=== PATIENT | male | born 1965 | race Caucasian/White ===

== ENCOUNTER 2024-06-16 18:27 | Observation (INO) | payer OTHER, SELFPAY ==
[2024-06-16] VITALS (11 sets, daily range): BP systolic 115–147; BP diastolic 64–83; PULSE 80–89; BMI 25.2; BMI 24.8
--- NOTE | 2024-06-16 10:58 | ED.GENMED ---
History of Present Illness
<DO Alo Meadows Filed: 06/18/24 21:30>
General
Chief Complaint: Fainting Sensation
Source: patient
Time Seen by Provider: 06/16/24 10:34
History of Present Illness
History of Present Illness:
59-year-old male presents to the emergency room because he was feeling lightheaded. Patient awoke this morning feeling quite dizzy and lightheaded. He endorses having a alcoholic drink last night as well as a gummy that contains THC. He was
trying to go to down the steps this morning when he fell at the top of the steps. He did not fall down the steps. He denies any injuries. Patient states he was feeling okay yesterday. He takes lisinopril for hypertension and had an injection for
migraines.
Past History
<DO Alo Meadows Filed: 06/18/24 21:30>
Past History
ED Past Medical History: HTN and Other (history of migraines)
ED Past Surgical History: Other (wisdom teeth extraction)
Phy Exam
<DO Alo Meadows Filed: 06/18/24 21:30>
Physical Exam
Physical Exam:
General: Awake, Alert, Oriented X3. No acute distress but appears somewhat dazed, pale
Vitals: Tachycardic
Head: Atraumatic
Eyes: Pupils equal, EOMI
Throat: Airway intact, no exudates, dry mucosa
Neck: Trachea midline
Lungs: Clear and equal b/l
Heart: Regular rate, no murmurs
Abd: Soft, Nontender, No pulsatile mass
Neuro: Nonfocal
Skin: Warm, dry, no rash
Extremities: pulses equal b/l, no edema
Course
<DO Alo Meadows Filed: 06/18/24 21:30>
Orders/Labs/Results
Orders:
Orders
06/16/24 10:22
Electrocardiogram (*1) Urgent
Reason for Study: Tachycardia
EKG- Treatment ONCE
06/16/24 10:58
0.9% Sodium Chloride 1000 ml [Nss] 2,000 ml IV BOLUS
06/16/24 11:01
Basic Metabolic Panel Urgent
Complete Blood Count/With Diff Urgent
Free T4 Urgent
TSH Reflex To Free T4 Urgent
06/16/24 13:47
CT Head W/o Iv Contrast Urgent
Comment:
Reason For Exam: dizziness
06/16/24 Dinner
Regular
At Your Request: Full Participation
Does patient need a safe tray?: No
06/16/24 15:53
Acetaminophen [Tylenol] 650 mg PO NOW STA
06/16/24 18:17
Admit/Transfer Patient As Directed
Co-Sign Provider:
Level of Care: Observation services
Assign to:: Telemetry
Physician / Group: Delfin Galdamez
Transfer to: Telemetry
Diagnosis: Lightheadedness
Reason for Telemetry: Arrhythmia
Date to Stop Telemetry: 06/19/24
Time to Stop Telemetry: 11:00
Expected length of stay greater than two midnights?: No
Code Status As Directed
Resuscitation Status: Full Code
PRN Pain Medication Management As Directed
May give lesser potent ordered pain med per pt: Yes
preference::
Protocol:: Medication orders for pain may be administered in a
manner that supports deferring to patient preference
when the pt is:
- Requesting an ordered lesser potent pain medication.
Least to most potent pain medications are defined
as: acetaminophen < NSAID < tramadol < opioids
(morphine, oxycodone, hydromorphone).
- Requesting a lesser dose of the same medication IF
ORDERED.
- Requesting a less intrusive route of administration
if both routes are prescribed by the provider (PO <
IV).
06/16/24 19:34
Acetaminophen [Tylenol] 650 mg PO Q4HPRN PRN
Bisacodyl [Dulcolax] 10 mg RECTAL [id number] PRN
Docusate W/Senna [Senokot-S] 1 tablet PO BIDPRN PRN
Polyethylene Glycol Powder [Miralax] 17 grams PO DAILYPRN PRN
06/16/24 19:34
Activity As Directed
Activity Level: Out of Bed-Early Mobility
Intake/ Output As Directed
Frequency: Per unit guidelines
Neurological Checks As Directed
Frequency: q4h
Pneumatic Compression Sleeves As Directed
Type: Knee high
Vital Signs As Directed
Frequency: Per unit guidelines
DX Deep Vein Thrombosis Video Routine
06/16/24 22:45
Urinalysis Urgent
Date Specimen was Collected: 06/16/24
Time Specimen was Collected: 22:36
06/17/24 07:52
Complete Blood Count/No Diff IN AM
06/17/24 13:28
MR Brain W/o & With Contrast Routine
Reason For Exam: Focal calcified lesion on CT
Recent pill cam endoscopy?: No
06/17/24 18:00
Lisinopril [Zestril] 5 mg PO QPM
Sertraline HCl [Zoloft] 100 mg PO QPM
06/19/24 11:00
DC Protocol for Telemetry ONCE
Abnormal Lab Results
06/16/24
11:01
WBC 13.1 H 10^3/uL
(4.8-10.8)
RBC 4.33 L 10^6/uL
(4.70-6.10)
MCH 33.5 H pg
(27.0-31.0)
Abs Immat Gran (auto) 0.1 H 10^3/uL
(0-0.05)
Absolute Neuts (auto) 11.5 H 10^3/uL
(1.4-6.5)
Absolute Lymphs (auto) 1.0 L 10^3/uL
(1.2-3.4)
Neutrophils % 88.0 H %
(42.2-75.2)
Lymphocytes % 7.3 L %
(20.5-51.1)
BUN 23 H mg/dl
(9-20)
Glucose 209 H mg/dl
(70-99)
TSH (Reflex) 0.20 L uIU/ml
(0.47-4.68)
06/16/24 11:01
06/16/24 11:01
Vital Signs
Initial and Last Documented VS:
Initial Vital Signs
Temp Pulse Resp BP Pulse Ox
97.9 F 140 14 119/79 97
06/16/24 10:18 06/16/24 10:18 06/16/24 10:18 06/16/24 10:18 06/16/24 10:18
Last Documented Vital Signs
Temp Pulse Resp BP Pulse Ox
98.3 F 60 16 126/71 94
06/18/24 16:00 06/18/24 17:10 06/18/24 16:00 06/18/24 17:10 06/18/24 17:07
<Yulissa Clifford MD - Last Filed: 06/16/24 23:02>
Orders/Labs/Results
Orders:
Orders
06/16/24 10:22
Electrocardiogram (*1) Urgent
Reason for Study: Tachycardia
EKG- Treatment ONCE
06/16/24 10:58
0.9% Sodium Chloride 1000 ml [Nss] 2,000 ml IV BOLUS
06/16/24 11:01
Basic Metabolic Panel Urgent
Complete Blood Count/With Diff Urgent
Free T4 Urgent
TSH Reflex To Free T4 Urgent
06/16/24 13:47
CT Head W/o Iv Contrast Urgent
Comment:
Reason For Exam: dizziness
06/16/24 Dinner
Regular
At Your Request: Full Participation
Does patient need a safe tray?: No
06/16/24 15:53
Acetaminophen [Tylenol] 650 mg PO NOW STA
06/16/24 18:17
Admit/Transfer Patient As Directed
Co-Sign Provider:
Level of Care: Observation services
Assign to:: Telemetry
Physician / Group: Delfin Galdamez
Transfer to: Telemetry
Diagnosis: Lightheadedness
Reason for Telemetry: Arrhythmia
Date to Stop Telemetry: 06/19/24
Time to Stop Telemetry: 11:00
Expected length of stay greater than two midnights?: No
Code Status As Directed
Resuscitation Status: Full Code
PRN Pain Medication Management As Directed
May give lesser potent ordered pain med per pt: Yes
preference::
Protocol:: Medication orders for pain may be administered in a
manner that supports deferring to patient preference
when the pt is:
- Requesting an ordered lesser potent pain medication.
Least to most potent pain medications are defined
as: acetaminophen < NSAID < tramadol < opioids
(morphine, oxycodone, hydromorphone).
- Requesting a lesser dose of the same medication IF
ORDERED.
- Requesting a less intrusive route of administration
if both routes are prescribed by the provider (PO <
IV).
06/16/24 19:34
Acetaminophen [Tylenol] 650 mg PO Q4HPRN PRN
Bisacodyl [Dulcolax] 10 mg RECTAL [id number] PRN
Docusate W/Senna [Senokot-S] 1 tablet PO BIDPRN PRN
Polyethylene Glycol Powder [Miralax] 17 grams PO DAILYPRN PRN
06/16/24 19:34
Activity As Directed
Activity Level: Out of Bed-Early Mobility
Intake/ Output As Directed
Frequency: Per unit guidelines
Neurological Checks As Directed
Frequency: q4h
Pneumatic Compression Sleeves As Directed
Type: Knee high
Vital Signs As Directed
Frequency: Per unit guidelines
DX Deep Vein Thrombosis Video Routine
06/16/24 22:45
Urinalysis Urgent
Date Specimen was Collected: 06/16/24
Time Specimen was Collected: 22:36
06/17/24 07:52
Complete Blood Count/No Diff IN AM
06/17/24 13:28
MR Brain W/o & With Contrast Routine
Reason For Exam: Focal calcified lesion on CT
Recent pill cam endoscopy?: No
06/17/24 18:00
Lisinopril [Zestril] 5 mg PO QPM
Sertraline HCl [Zoloft] 100 mg PO QPM
06/19/24 11:00
DC Protocol for Telemetry ONCE
Abnormal Lab Results
06/16/24
11:01
WBC 13.1 H 10^3/uL
(4.8-10.8)
RBC 4.33 L 10^6/uL
(4.70-6.10)
MCH 33.5 H pg
(27.0-31.0)
Abs Immat Gran (auto) 0.1 H 10^3/uL
(0-0.05)
Absolute Neuts (auto) 11.5 H 10^3/uL
(1.4-6.5)
Absolute Lymphs (auto) 1.0 L 10^3/uL
(1.2-3.4)
Neutrophils % 88.0 H %
(42.2-75.2)
Lymphocytes % 7.3 L %
(20.5-51.1)
BUN 23 H mg/dl
(9-20)
Glucose 209 H mg/dl
(70-99)
TSH (Reflex) 0.20 L uIU/ml
(0.47-4.68)
06/16/24 11:01
06/16/24 11:01
Vital Signs
Initial and Last Documented VS:
Initial Vital Signs
Temp Pulse Resp BP Pulse Ox
97.9 F 140 14 119/79 97
06/16/24 10:18 06/16/24 10:18 06/16/24 10:18 06/16/24 10:18 06/16/24 10:18
Last Documented Vital Signs
Temp Pulse Resp BP Pulse Ox
98.3 F 60 16 126/71 94
06/18/24 16:00 06/18/24 17:10 06/18/24 16:00 06/18/24 17:10 06/18/24 17:07
<Mario Saldivar, DO - Last Filed: 06/18/24 21:30>
MDM/Problems Addressed
Differential Diagnosis Includes:
Dehydration, electrolyte abnormalities, secondary effects of drug ingestion
MDM/Problems Addressed:
Patient presents with lightheadedness dizziness. Symptoms seem correlated with the use of THC last night. Physical exam shows that he is sleepy and appears to be uncomfortable but in no distress. His neurologic exam is nonfocal. Patient
hydrated. He feels somewhat better but not back to baseline. Patient signed out to Dr. Clifford pending CAT scan and further observation.
<Mario Saldivar DO - Last Filed: 06/18/24 21:30>
*Pulse Oximetry
Patient hypoxic: no
*EKG
Interpreted by ED Provider?: Yes
Interpretation: abnormal
Heart Rate: 108
Rate: tachycardiac
Rhythm: sinus tachycardia
[place]: normal axis
Interval: normal interval
QRS Pattern: normal QRS
Ischemia: non-specific ST changes
*[employer] Interpretation
Rate: tachycardiac
Interpretation: abnormal
Heart Rate: 108
Rhythm: sinus tachycardia
*Critical Care Note
Total Time (30-74mins, 75-104mins- exclusive of procedures): Not Applicable
<Yulissa Clifford MD - Last Filed: 06/16/24 23:02>
Update Note
Update Note:
CT scan as below. Trialed ambulation again however patient remains ataxic. After shared decision making we will admit for MRI
Focal well-defined calcification within the anterior and inferior left frontal lobe with no evidence for associated mass effect or white matter edema. This most likely represents a benign dystrophic calcification, although of uncertain etiology.
As warranted, consider further evaluation with MRI of the brain without and with contrast. Also, consider a follow-up CT of the head in 6-9 months to assess for stability.
ED Attending Note
<Mario Saldivar DO - Last Filed: 06/18/24 21:30>
-
Portions of this chart may have been created with voice recognition software.� Occasional wrong word or��sound alike� substitutions may have occurred due to the inherent limitations of voice recognition software.
Discharge Plan
Departure
Patient Disposition: Admit
Presentation/result/management discussed w/ accepting MD/DO: Hospitalist
Discharge Problem:
Dizziness
Interventions
Interventions:
*Risk Screen - Suicide Last Done: 06/16/24 19:56
*General Assessment Last Done: 06/16/24 10:56
*Neglect/Abuse Screening Last Done: 06/16/24 10:56
ED- Fall Risk Assessment Last Done: 06/16/24 10:56
*ED COVID-19 Vaccine History Last Done: 06/16/24 12:00
*Nursing Disposition Last Done: 06/16/24 19:30
ED- Cardiac Assessment Last Done: 06/16/24 10:56
ED- Neurological Assessment Last Done: 06/16/24 10:56
Discharge Date and Time
Discharge Date/Time: 06/16/24 19:30
[2024-06-16] MEDS: NSS 2000 IV (11:00)
[2024-06-16 11:13] LABS: % Basophils 0.2 % (0-2); % Immature Granulocytes 0.4 % (0-0.5); % Lymphocytes 7.3 % (20.5-51.1); % Monocytes 4.1 % (1.7-9.3); Absolute Immature Granulocytes 0.1 10^3/uL (0-0.05); Absolute Monocytes 0.5 10^3/uL (0.1-0.6); Absolute Neutrophils 11.5 10^3/uL (1.4-6.5); Hematocrit 40.1 % (39.0-52.0); Hemoglobin 14.5 g/dL (13.0-18.0); Mean Corp Hgb Conc. 36.2 g/dL (33.0-37.0); Mean Corpuscular Hgb 33.5 pg (27.0-31.0); Mean Corpuscular Volume 92.6 fL (80.0-94.0); Mean Platelet Volume 9.2 fL (7.4-10.4); Nucleated Red Blood Cells % 0 % (-); Platelet Count 295 10^3/uL (130-400); Red Blood Cell Count 4.33 10^6/uL (4.70-6.10); Red Cell Dist. Width 11.6 % (11.5-14.5); White Blood Cell Count 13.1 10^3/uL (4.8-10.8)
[2024-06-16 11:26] LABS: Blood Urea Nitrogen 23 mg/dl (9-20); Calcium 9.8 mg/dl (8.4-10.2); Carbon Dioxide 23 mmol/L (22-30); Chloride 101 mmol/L (98-107); Estimated Creatinine Clearance 75 ml/min; Glucose 209 mg/dl (70-99); Potassium 4.2 mmol/L (3.5-5.1); Sodium 140 mmol/L (135-145); eGFR > 60.00
[2024-06-16 12:26] LABS: Free T4 1.03 ng/dl (0.78-2.19)
[2024-06-16] MEDS: TYLENOL 650 MG PO (15:59)
--- NOTE | 2024-06-16 18:08 | HPS.HSE ---
Family Physician
-
Family Physician: Heron Ellis
Chief Complaint
-
Lightheadedness
History of Present Illness
Patient is a 59-year-old male with hypertension, migraines that presented to the ED today for the complaint of presyncope. He complained of lightheadedness upon awakening this morning. Was trying to go down the stairs when he had a fall, did not
fall down the stairs however. Denied any injuries at the time, no head strike. States that he was feeling well prior to this morning. Last evening he did have an alcoholic beverage and THC edible. He denies any chest pain, shortness of breath,
fevers or chills. Denies palpitations or vertiginous symptoms.
Upon arrival was AFVSS and on room air. Lab studies in the ED showed TSH 0.2 with normal free T4, white count 13.1 with neutrophilic predominance and relative lymphopenia but otherwise unremarkable. CT head without contrast showed a focal
well-defined calcification in the anterior and inferior left frontal lobe without any mass effect or edematous findings, consistent with benign dystrophic calcification.
Upon speaking with the patient he states that he has had other episodes of similar symptoms in the past though not as severe as today. He had an episode while in the supermarket a few months ago where he felt like he was in a pass out though did
not at the time. Had other previous occurrences without any workup. He denies any chest pain, dyspnea, palpitations before his episode today.
Medical History
Past Medical History
Past Medical History: Reports HTN
Past Surgical History: Reports None
Social History
Tobacco: Non-smoker
Alcohol: Occasional
Drug: Marijuana
Family History
Family History: Not pertinent
Allergies / Home Medications
Allergies reflects when Allergies were last updated in [facility].
Home Medications with original date entered in [facility]
Allergy/Medication List:
Allergies
Allergy/AdvReac Type Severity Reaction Status Date / Time
No Known Allergies Allergy Verified 06/16/24 10:18
Home Medications
lisinopril 5 mg tablet 5 mg PO QPM 12/10/10
sertraline 100 mg tablet 100 mg PO QPM 06/16/24
Review of Systems
-
A 12 point ROS was completed and negative except as noted: Yes
Constitutional: Reports No Symptoms
EENT: Reports No Symptoms
Respiratory: Reports No Symptoms
Cardiac: Reports No Symptoms
Abdomen/GI: Reports No Symptoms
: Reports No Symptoms
Musculoskeletal: Reports No Symptoms
Skin: Reports No Symptoms
Neurological: Reports No Symptoms
Endocrine: Reports No Symptoms
Hematologic/Lymphatic: Reports No Symptoms
Psych: Reports No Symptoms
Physical Exam
Vital Signs
Vital Signs
Temp Pulse Resp BP Pulse Ox
97.9 F 105 18 122/68 96
06/16/24 10:18 06/16/24 17:33 06/16/24 17:33 06/16/24 17:00 06/16/24 17:33
Physical Exam
General: Well Nourished, No Apparent Distress, Comfortable and Conversant
HEENT: NormoCephalic, Anicteric, Moist mucous membranes and Atraumatic
Respiratory: Clear and Non Labored Respirations; No Wheezes, Rales or Rhonchi
Cardiac: S1/S2 and Regular Rhythm; No Murmur, Rub, Gallop, Peripheral Edema or JVD
GI: Soft, Non Tender, Non Distended, Normal Bowel Sounds and No Hepatosplenomegaly
Musculoskeletal: No Clubbing, No Cyanosis, No Edema and Other (No gross deformities)
Skin: Warm and Dry; No Rash, Jaundice or Lesions
Neuro: AO x 3, Nonfocal/grossly intact, Cranial Nerves Intact and Other (No nystagmus)
Laboratory Results
-
06/16/24 11:01
06/16/24 11:01
Data Reviewed
-
CT Scan: Report Reviewed by me and Discussed with Patient
Lab Data: Labs Reviewed by me and Discussed with Patient
Impression/Plan
-
#Lightheadedness
#Gait disturbance
-Differentials includes drug-induced, viral infx, vestibular migraine; cannot rule out cardiac cause; neurologic cause less likely
-Was lightheaded upon awakening this morning after consuming alcohol and THC last night, unsure of the dosage he took
-No biochemical causes on labs in the ED, CT showed benign-appearing calcification not anatomically correlated
-Was slightly tachycardic in the ED though has improved, heart rate in the high 90s and sinus on my eval
-No focal deficits on exam, no nystagmus
Plan
-Order MRI brain without contrast
-Order orthostatic vital signs and routine chest x-ray
-Monitor on telemetry while here
-Follow-up COVID testing
-Order TTE for here Tuesday, consider outpatient at [facility] before
-Consider cardiology consult
#Leukocytosis
-Neutrophilic predominance with lymphopenia on differential, no fevers or other infectious symptoms
-Suspect he could have an underlying viral infection such as COVID that is contributing to his admission
-Will order COVID now, monitor for fevers or chills
Plan
-Low threshold for blood cultures if febrile, in context of undiagnosed murmur
-Follow-up COVID testing consider Paxlovid
-Trend CBC
#Cardiac murmur
-States he has never been told that he has a heart murmur
-Sounds consistent with MR though cannot rule out physiologic flow murmur
-Going to order echocardiogram for Tuesday if he remains in the hospital
-Should be given a prescription for TTE as outpatient if discharged
#CT abnormality
-CT head without contrast showed focal lesion at left anterior and inferior left frontal lobe
-Findings are consistent with dystrophic calcification, likely a benign etiology
-As he is going to be admitted we will order MRI without contrast to further characterize
#Hypertension
-No known history of hypertensive systemic disease
-Well-controlled on home regimen of lisinopril 5 mg nightly
#Anxiety/depression
-Stable on sertraline 100 mg nightly
#Migraines
-Currently on Aimovig for CGRP therapy
DVT prophylaxis: SCDs
Diet: Regular
CODE STATUS: Full code
Disposition: Admit to telemetry, observation status
[2024-06-16 20:07] LABS: COVID-19 Antigen Negative (Negative)
[2024-06-16] MEDS: LR 1000 IV (20:25)
[2024-06-16] MEDS: FIORICET 2 TAB PO (22:10)
[2024-06-16 22:59] LABS: Urine Albumin Negative (Neg - Trace); Urine Bilirubin Negative (Negative); Urine Character Clear (Clear); Urine Color Yellow; Urine Glucose Negative (Negative); Urine Ketone Negative (Negative); Urine Leukocyte Negative (Negative); Urine Nitrite Negative (Negative); Urine Occult Blood Negative (Negative); Urine Urobilinogen Negative (Neg - 1+)
[2024-06-17 03:40] VITALS: BP 97/62
--- NOTE | 2024-06-17 04:00 | PTCARENOTE ---
Pt received from ER able to make his needs known. Pt encouraged to call for help as needed.Iv fluids continued as ordered.Plan of care continued.Pt oriented to room & call galdamez in reach.
[2024-06-17] MEDS: LR 1000 IV ×2 (06:37→20:50)
[2024-06-17 07:40] VITALS: BP 131/67; BP 135/78; BP 135/80; PULSE 68; PULSE 71; PULSE 75
[2024-06-17 08:42] LABS: Hematocrit 36.9 % (39.0-52.0); Hemoglobin 13.2 g/dL (13.0-18.0); Mean Corp Hgb Conc. 35.8 g/dL (33.0-37.0); Mean Corpuscular Volume 97.9 fL (80.0-94.0); Mean Platelet Volume 9.5 fL (7.4-10.4); Platelet Count 207 10^3/uL (130-400); Red Blood Cell Count 3.77 10^6/uL (4.70-6.10); Red Cell Dist. Width 11.7 % (11.5-14.5); White Blood Cell Count 7.9 10^3/uL (4.8-10.8)
[2024-06-17 08:57] LABS: ALT (SGPT) 13 U/L (0-50); AST (SGOT) 21 U/L (17-59); Albumin 3.7 g/dl (3.5-5.0); Alkaline Phosphatase 56 U/L (38-126); Blood Urea Nitrogen 11 mg/dl (9-20); Calcium 9.4 mg/dl (8.4-10.2); Carbon Dioxide 31 mmol/L (22-30); Chloride 104 mmol/L (98-107); Direct Bilirubin 0.2 mg/dl (0.0-0.4); Estimated Creatinine Clearance 84 ml/min; Glucose 91 mg/dl (70-99); Potassium 4.2 mmol/L (3.5-5.1); Sodium 141 mmol/L (135-145); Total Bilirubin 0.9 mg/dl (0.2-1.3); eGFR > 60.00
--- NOTE | 2024-06-17 10:19 | W.PN.HOSP.TC ---
Today's Communication/Plan
-
Continue with IV fluids
Monitor on telemetry
Echocardiogram tomorrow
Monitor clinically
Assessment / Plan
Assessment / Plan
#Lightheadedness
#Gait disturbance
-Differentials includes dehydration, viral infx, vestibular migraine; cannot rule out cardiac cause; neurologic cause less likely
-Complained of lightheadedness after consuming alcohol and THC the night before, denies any recent sick contacts or exposure
-Lab studies were biochemically unremarkable, CT showed a benign-appearing calcification that does not correlate anatomically
-Did have a slight leukocytosis on arrival, describes vague symptoms such as mental fog as well, suspect viral syndrome though COVID (-)
-Receiving IV fluids today, states that he is feeling better though symptoms are not resolved; question dehydration
-No focal neurological deficits, no events per telemetry today; MRI brain pending, orthostats negative
Plan
-Follow-up MRI brain without contrast
-Continue to monitor on telemetry
-Plan for TTE tomorrow
-Consider cardiology consult if not improving
#Leukocytosis (resolved)
-On arrival had a leukocytosis, neutrophilic predominance with relative leukocytopenia
-Suspect that he is dehydrated and this was hemoconcentrated, all counts decreased with fluids
-COVID testing was negative, cannot rule out an underlying nonspecific viral infection at this time
-Will continue to monitor for fevers, trend CBC daily
#Cardiac murmur
-States he has never been told that he has a heart murmur
-Noted on exam yesterday, subtle, was suspicious for MR though do not hear any murmur on exam today
-Suspect it could have been a flow murmur in the context of dehydration
-Echocardiogram is ordered
#CT abnormality
-CT head without contrast showed focal lesion at left anterior and inferior left frontal lobe
-Findings are consistent with dystrophic calcification, likely a benign etiology
-Follow-up MRI as above
#Hypertension
-No known history of hypertensive systemic disease
-Well-controlled on home regimen of lisinopril 5 mg nightly
#Anxiety/depression
-Stable on sertraline 100 mg nightly
#Migraines
-Currently on Aimovig for CGRP therapy
DVT prophylaxis: SCDs
Diet: Regular
CODE STATUS: Full code
Disposition: Admit to telemetry, observation status
Anticipated Discharge: Within 24 hours
Subjective/Interval History
-
Date of Service: June 17, 2024
Seen and examined at the bedside today. No acute events reported overnight. No events per telemetry.
He remains afebrile, hemodynamically stable, and on room air.
He states that he does feel better today though still has some residual lightheadedness. He describes a mental fog as well. Currently denies any chest pain, shortness of breath, palpitations, fevers or chills, GI or urinary issues, abnormal
bleeding or bruising, paresthesias or weakness.
Objective Data
-
Labs:
Laboratory Results
06/17/24
07:52
WBC 7.9
Hgb 13.2
Hct 36.9 L
Plt Count 207 D
Sodium 141
Potassium 4.2
Chloride 104
Carbon Dioxide 31 H
BUN 11
Creatinine 0.9
Glucose 91
Calcium 9.4
Total Bilirubin 0.9
AST 21
ALT 13
Alkaline Phosphatase 56
Vital Signs:
Vital Signs
Temp Pulse Resp BP Pulse Ox
98.1 F 68 16 131/67 100
06/17/24 07:40 06/17/24 07:40 06/17/24 07:40 06/17/24 07:40 06/17/24 07:40
I&O
06/16/24 06/17/24 06/18/24
06:59 06:59 06:59
Intake Total 240 / 240
Output Total 1400 / 1400
Balance -1160 / -1160
Review of Systems
-
History Source: Patient
All other systems: Reviewed and negative
Physical Exam
-
General: No Apparent Distress and Comfortable
HEENT: Normocephalic, Atraumatic, Moist Mucous Membranes and Anicteric
Respiratory: Clear to Auscultation and Non Labored Respirations; Negative Wheezes, Rales or Rhonchi
Cardiac: Regular Rhythm and S1/S2; Negative Murmur, Rub, JVD or Gallop
GI: Soft, Nontender, Nondistended and Normal Bowel Sounds
Musculoskeletal: No Clubbing, No Cyanosis and No Edema
Skin: Warm and Dry; Negative Rash or Normal Turgor
Neuro: AO x 3, Nonfocal/Grossly Intact and Central Nerve's Intact; Negative Tremors
Data Reviewed
-
Labs: Labs Reviewed by me and Discussed with Patient
[2024-06-17 11:05] VITALS: BP 131/68
[2024-06-17] MEDS: ATIVAN 1 MG IV (13:31)
[2024-06-17] MEDS: NSS (PRESERVATIVE FREE) 0.5 ML IV (13:32)
--- NOTE | 2024-06-17 13:59 | PTCARENOTE ---
Patient sent to MRI and patient refused the testing without sedation. MD contacted. 1 mg IV ativan given as ordered and transported back to MRI for testing.
--- NOTE | 2024-06-17 15:17 | PTCARENOTE ---
Ativan 1 mg IV given. MRI completed.
[2024-06-17 15:31] VITALS: BP 113/65
[2024-06-17] MEDS: ZESTRIL 5 MG PO (17:02)
[2024-06-17] MEDS: ZOLOFT 100 MG PO (17:11)
[2024-06-17] MEDS: LR IV (17:14)
[2024-06-17 19:55] VITALS: BP 115/68
[2024-06-17 23:30] VITALS: BP 106/56
[2024-06-18 03:55] VITALS: BP 114/54
[2024-06-18 08:00] VITALS: BP 125/77
[2024-06-18 08:08] LABS: % Basophils 0.9 % (0-2); % Eosinophils 2.8 % (0-6); % Immature Granulocytes 0.3 % (0-0.5); % Lymphocytes 30.4 % (20.5-51.1); % Monocytes 5.8 % (1.7-9.3); % Neutrophils 59.8 % (42.2-75.2); Absolute Basophils 0.1 10^3/uL (0-0.2); Absolute Eosinophils 0.2 10^3/uL (0-0.7); Absolute Lymphocytes 2.1 10^3/uL (1.2-3.4); Absolute Monocytes 0.4 10^3/uL (0.1-0.6); Absolute Neutrophils 4.1 10^3/uL (1.4-6.5); Hematocrit 37.2 % (39.0-52.0); Hemoglobin 13.2 g/dL (13.0-18.0); Mean Corp Hgb Conc. 35.5 g/dL (33.0-37.0); Mean Corpuscular Hgb 33.8 pg (27.0-31.0); Mean Corpuscular Volume 95.1 fL (80.0-94.0); Mean Platelet Volume 9.5 fL (7.4-10.4); Nucleated Red Blood Cells % 0 % (-); Platelet Count 208 10^3/uL (130-400); Red Blood Cell Count 3.91 10^6/uL (4.70-6.10); Red Cell Dist. Width 11.7 % (11.5-14.5); White Blood Cell Count 6.8 10^3/uL (4.8-10.8)
[2024-06-18 08:43] LABS: Blood Urea Nitrogen 12 mg/dl (9-20); Calcium 9.2 mg/dl (8.4-10.2); Carbon Dioxide 32 mmol/L (22-30); Chloride 103 mmol/L (98-107); Estimated Creatinine Clearance 94 ml/min; Glucose 87 mg/dl (70-99); Potassium 3.9 mmol/L (3.5-5.1); Sodium 141 mmol/L (135-145); eGFR > 60.00
[2024-06-18 09:40] VITALS: BP 137/82; BP 139/77; BP 144/77; PULSE 63; PULSE 70; PULSE 73
[2024-06-18] MEDS: FLUSH (NSS) 1 FLUSH IV (09:55)
[2024-06-18] MEDS: LR 1000 IV (09:55)
--- NOTE | 2024-06-18 10:47 | CM ---
CM met with pt bedside
Pt resides with his spouse in a 2[address] with 4 [address], full flight to 2nd floor
Pt works [employer] and is independent with his ADLs
No insecurities
PCP- Heron Ellis
rx- [facility]
Pt is OBS- OBS form verbally completed,
Copy provided
Discharge Disposition- home, no needs anticipated
[2024-06-18 12:00] VITALS: BP 130/74
--- NOTE | 2024-06-18 12:42 | W.PN.HOSP.TC ---
Addendum entered and electronically signed by Jose Eduardo Christie MD 06/19/24 16:03:
[id number]
Original Note:
Today's Communication/Plan
-
F/u ECHO
F/u Neurology for migraine issues outpatient; F/u Cards for possible Holter
CT/MRI brain outpatient
Polysubstance cessation
Assessment / Plan
Assessment / Plan
#Lightheadedness
#Gait disturbance
-Improved
-PT/OT
-Differentials includes dehydration/drug side effects, vestibular migraine as had hx of migraines in the past and currently on medications
- resolved
-orthostatic negative
-No focal neurological deficits, no events per telemetry today; MRI brain negative for acute pathology
-can f/u mri/ct brain outpatient
-F/u cards for holter monitor, and neurology outpatient for migraines
#Leukocytosis
-most likely reactive
-resolved
#Cardiac murmur
-States he has never been told that he has a heart murmur
-F/u ECHO
-F/u Cards outpatient
#CT abnormality
-CT head without contrast showed focal lesion at left anterior and inferior left frontal lobe
-Findings are consistent with dystrophic calcification, likely a benign etiology
-Follow-up MRI/CT brain outpatient
#Hypertension
-No known history of hypertensive systemic disease
-Well-controlled on home regimen of lisinopril 5 mg nightly
#Anxiety/depression
-Stable on sertraline 100 mg nightly
#Migraines
-Currently on Aimovig for CGRP therapy
DVT prophylaxis: SCDs
Diet: Regular
CODE STATUS: Full code
More than 30 minutes spent in discharge including
Final examination of the patient
Summarizing hospital stay
Instructions for continuing care to all relevant caregivers
Preparation of discharge records, prescriptions, and referral forms
Total time spent (35 in minutes):
Anticipated Discharge: Today
Subjective/Interval History
-
Date of Service: June 18, 2024
Feels better
Objective Data
-
Labs:
Laboratory Results
06/18/24
07:15
WBC 6.8
Hgb 13.2
Hct 37.2 L
Plt Count 208
Sodium 141
Potassium 3.9
Chloride 103
Carbon Dioxide 32 H
BUN 12
Creatinine 0.8
Glucose 87
Calcium 9.2
Vital Signs:
Vital Signs
Temp Pulse Resp BP Pulse Ox
98.9 F 64 17 125/77 97
06/18/24 08:00 06/18/24 08:00 06/18/24 08:00 06/18/24 08:00 06/18/24 09:31
I&O
06/17/24 06/18/24 06/19/24
06:59 06:59 06:59
Intake Total 240 / 240 1640 / 1640
Output Total 1400 / 1400 2680 / 2680
Balance -1160 / -1160 -1040 / -1040
Review of Systems
-
History Source: Patient
All other systems: Not reviewed unless documented
Physical Exam
-
General: No Apparent Distress and Comfortable
HEENT: Normocephalic, Atraumatic, Moist Mucous Membranes and Anicteric
Respiratory: Clear to Auscultation and Non Labored Respirations; Negative Wheezes, Rales or Rhonchi
Cardiac: Regular Rhythm and S1/S2; Negative Murmur, Rub, JVD or Gallop
GI: Soft, Nontender, Nondistended and Normal Bowel Sounds
Musculoskeletal: No Clubbing, No Cyanosis and No Edema
Skin: Warm and Dry; Negative Rash or Normal Turgor
Neuro: AO x 3, Nonfocal/Grossly Intact and Central Nerve's Intact; Negative Tremors
--- NOTE | 2024-06-18 12:46 | W.DS.TRANS ---
DC Summary - [employer]
-
Discharge Instructions:
Discharge Diagnosis/Procedures #Lightheadedness
#Gait disturbance
Diet Low Fat,Regular
Others Tests Consider follow-up imaging with Brain CT and/or
MRI, suggested timeframe initially of 6 months
Instructions:
Stand-Alone Forms:
Changes to Home Medications: No
Discharge Medications:
DC Medications w/original date entered in [facility]
lisinopril 5 mg tablet 5 mg PO QPM Blood Pressure 12/10/10
pwbzmux-utlwukohkqppb-ypdgbyar 250 mg-250 mg-65 mg tablet (Excedrin Migraine) 2 tab PO Q6HPRN PRN headache/migraine 06/16/24
erenumab-aooe 140 mg/mL subcutaneous auto-injector (Aimovig Autoinjector) 140 mg SC MONTHLY migraine 06/16/24
rimegepant 75 mg disintegrating tablet (Nurtec ODT) 75 mg PO DAILYPRN PRN migraine 06/16/24
sertraline 100 mg tablet 100 mg PO QPM Depression 06/16/24
Home Medication Changes
na
Pending Results: No
[2024-06-18 14:01] VITALS: BP 137/80; BP 145/80; PULSE 70
--- NOTE | 2024-06-18 14:08 | PTOTSP ---
Pt is no longer dizzy/lightheaded. He is independent with ambulation without need for any assistive devices and is able to climb steps. No acute PT needs were identified. Will sign off.
[2024-06-18 16:00] VITALS: BP 126/71
--- NOTE | 2024-06-18 17:07 | PTCARENOTE ---
Pt AAO x3, ESCOBAR well, OOB to BR; no c/o weakness/dizziness. VSS. On room air- pulseox 94, no SOB noted. Abd soft, non-tender, anoop PO well. Voiding clear yellow urine in urinal; also voiding in BR without difficulty. Pt resting in bed at present;
anticipating DC ome after ECHO results are entered. Will continue to monitor.
[2024-06-18] MEDS: ZESTRIL 5 MG PO (17:10)
[2024-06-18] MEDS: FIORICET 2 TAB PO (17:10)
[2024-06-18] MEDS: ZOLOFT 100 MG PO (17:10)
== END 2024-06-18 18:13 | disposition home or self-care (01) ==
LOC: 4 EAST ACU 18:27
PROVIDERS: Nurse Practitioner Gerontology; ADMITTING PHYSICIAN Internal Medicine; ATTENDING PHYSICIAN Internal Medicine; EMERGENCY PHYSICIAN Emergency Medicine; FAMILY PHYSICIAN Family Medicine
DX: R26.9 Unspecified abnormalities of gait and mobility (principal); R42 Dizziness and giddiness; R55 Syncope and collapse; I10 Essential (primary) hypertension; G43.909 Migraine, unspecified, not intractable, without status migrainosus; W01.0XXA Fall on same level from slipping, tripping and stumbling without subsequent striking against object, initial encounter; Y93.89 Activity, other specified; Y92.008 Other place in unspecified non-institutional (private) residence as the place of occurrence of the external cause; R01.1 Cardiac murmur, unspecified; R00.0 Tachycardia, unspecified; D72.829 Elevated white blood cell count, unspecified; F41.9 Anxiety disorder, unspecified; F32.A Depression, unspecified; I34.0 Nonrheumatic mitral (valve) insufficiency; I34.1 Nonrheumatic mitral (valve) prolapse; R00.1 Bradycardia, unspecified; I37.1 Nonrheumatic pulmonary valve insufficiency; Z11.52 Encounter for screening for COVID-19
CPT/HCPCS: 70450; 70553; 71045; 80048; 80053; 81003; 82248; 84439; 84443; 85025; 85027; 87811; 93005; 93306; 96360; 96361; 97161; 99285; A9575; G0378